=== PATIENT | male | born 1965 | race Caucasian/White ===

== ENCOUNTER → 2017-05-14 | Outpatient (CLI) | payer BC ==
[2017-05-14 12:23] LABS: BASO % 0.2 %; BASO ABS # 0.01 K/uL (0-0.2); COMPLETE YES; EOS % 2.8 %; HEMATOCRIT 51.3 % (42-52); IG% 0.2 %; LYMPH ABS # 1.56 K/uL (1.2-3.4); MEAN CELL VOLUME 84.1 fL (80-100); MEAN CORPUSCULAR HEMOGLOBIN 28.2 pg (25-34); MEAN CORPUSCULAR HGB CONC 33.5 g/dl (32-36); MONO % 7.1 %; NEUT % 62.7 %; PLATELET COUNT 170 K/uL (130-400); WHITE BLOOD COUNT 5.77 K/uL (4.8-10.8)
== END | disposition home or self-care (01) ==
LOC: C.LABPBG 10:26
PROVIDERS: ATTEND Family Medicine
DX: Z11.59 Encounter for screening for other viral diseases (principal); K62.5 Hemorrhage of anus and rectum; Z12.5 Encounter for screening for malignant neoplasm of prostate

== ENCOUNTER → 2018-03-08 | Outpatient (CLI) | payer OTHER ==
--- NOTE | 2018-03-11 07:59 | MYOCARDIAL PERFUSION SCAN ---
STUDY TITLE: One-day nuclear medicine technetium-99m Cardiolite myocardial perfusion scan. INDICATION: Chest pain, abnormal EKG. BASELINE EKG: Normal sinus rhythm at a ventricular rate of [address] abnormality. STRESS EKG: Patient exercised for 6 minutes achieving 7 METS. With exercise, there was occasional PVCs and frequent PACs. There were no significant discernible ST abnormalities. With exercise, patient became quickly short of breath and fatigued, but there was no exercise-induced chest pain. Blood pressure peaked at 188/90. Heart rate nitesh from 65 to 179 representing 107% of maximum predicted heart rate. TECHNIQUE: For the stress portion of the study, 30.0 mCi of technetium-99m Cardiolite IV was injected at 1400 hours on 03/08/2018. Fifteen minutes following the injection, imaging of the heart was performed in multiple projections. For the rest portion of the study, 10.8 mCi of technetium-99m Cardiolite was injected IV at 11:40 a.m. One hour following the injection, imaging of the heart was performed in the same projections. FINDINGS: Rotating raw images were reviewed in detail. There was positive diaphragmatic attenuation on both stress and rest. There was no significant extracardiac pathologic uptake. The short axis, vertical long axis, and horizontal long axis images were reviewed in detail. There was no significant visual TID. There was normal myocardial perfusion with both stress and rest. LV size was normal with a calculated end-diastolic volume of 83 mL. LV function was normal with a calculated ejection fraction of 65% and no regional wall motion abnormalities. IMPRESSION: 1. Negative myocardial perfusion study for exercise-induced ischemia. 2. Negative stress EKG for ischemia at 107% maximum predicted heart rate. 3. Below average functional capacity, exercised 6 minutes achieving 7 METS. 4. No exercise induced chest pain and normal hemodynamic response to exercise. 5. Normal left ventricular size and function with a calculated EF of 65%.
== END | disposition home or self-care (01) ==
LOC: C.NUCL 11:15
PROVIDERS: ATTEND Family Medicine
DX: R07.9 Chest pain, unspecified (principal); R94.31 Abnormal electrocardiogram [ECG] [EKG]